=== PATIENT | female | born 1950 | race African-American/Black ===

== ENCOUNTER 2017-05-21 16:07 | Inpatient (IN) | payer OTHER, MEDICAID ==
[~2017-05-21] VITALS: Ht 162.6 cm; Wt 80.2 kg
[2017-05-21] MEDS ORDERED: METF500T4 PO (16:13)
[2017-05-21] MEDS ORDERED: GABA-529 PO (16:13)
[2017-05-21] MEDS ORDERED: LISI-660 PO (16:13)
[2017-05-21] MEDS ORDERED: BUSP5TAB20 PO (16:13)
[2017-05-21 16:22] LABS: GLUCOSE,POINT OF CARE 149 MG/DL (70-110)
[2017-05-21 21:34] LABS: BASOPHILS % (AUTO) 0.7 % (0.0-2.0); EOSINOPHILS % (AUTO) 1.2 % (1.0-6.0); HEMATOCRIT 39.8 % (36-46); HEMOGLOBIN 13.3 g/dL (12.0-16.0); LYMPHOCYTES # (AUTO) 1.4 K/uL (1.0-4.8); LYMPHOCYTES % (AUTO) 16.3 % (22.0-44.0); MEAN CORPUSCULAR HEMOGLOBIN 28.5 pg (26.0-34.0); MEAN CORPUSCULAR HGB CONC 33.4 G/dL (31.0-37.0); MEAN CORPUSCULAR VOLUME 85 fL (80-100); MONOCYTES # (AUTO) 0.7 K/uL (0.1-1.0); MONOCYTES % (AUTO) 7.5 % (2.0-9.0); NEUTROPHILS # (AUTO) 6.5 K/uL (1.8-7.7); NEUTROPHILS % (AUTO) 74.3 % (40.0-70.0); PLATELET COUNT (AUTO) 276 K/uL (150-450); RED BLOOD CELL COUNT(AUTO) 4.66 MIL/uL (4.00-5.20); RED CELL DISTRIBUTION WIDTH 14.8 % (11.5-14.5)
[2017-05-21] MEDS ORDERED: ZOLPIDEM TARTRATE 10 MG TABLET PO PRN (21:45)
[2017-05-21] MEDS ORDERED: OLANZapine 5 MG RAPDIS TABLET PO PRN (21:45)
[2017-05-21 21:53] LABS: ANION GAP 14 mmol/L (8-16); CALCIUM, TOTAL 9.8 mg/dL (8.8-10.5); CARBON DIOXIDE 24 mmol/L (22-29); CHLORIDE 99 mmol/L (98-107); CREATININE 1.02 mg/dL (0.60-1.30); GLOMERULAR FILTR. RATE CALC > 60 mL/min (>60); GLUCOSE,RANDOM 126 mg/dL (70-110); POTASSIUM 3.2 mmol/L (3.5-5.1); SODIUM SERUM 137 mmol/L (136-145); UREA NITROGEN, BLOOD 26 mg/dL (7-18)
[2017-05-21 21:58] LABS: ALANINE AMINOTRANSFERASE 23 U/L (12-78); ALBUMIN 3.7 g/dL (3.4-5.0); ALKALINE PHOSPHATASE 96 U/L (46-116); ASPARTATE AMINOTRANSFERASE 29 U/L (15-37); BILIRUBIN,TOTAL 0.3 mg/dL (0.1-1.0); TOTAL PROTEIN, SERUM 7.3 g/dL (6.4-8.2)
[2017-05-21] MEDS ORDERED: POTASSIUM CHLORIDE 20 MEQ ER TABLET PO ONE (22:30)
[2017-05-22] VITALS (7 sets, daily range): BP systolic 140–190; BP diastolic 60–109
[2017-05-22] MEDS: LORazepam 2 MG TABLET PO PRN (00:23)
[2017-05-22] MEDS ORDERED: INFLUENZA VIRUS VACCINE QVS 2017-18 (3YR+)/PF 60 MCG/0.5 ML SYRINGE IM ONE (00:45)
[2017-05-22] MEDS ORDERED: PNEUMOCOCCAL VACCINE POLYVALENT 0.5 ML VIAL [PPSV23] IM ONE (00:45)
[2017-05-22] MEDS ORDERED: GLUCAGON,HUMAN RECOMBINANT 1 MG VIAL IM PRN (05:45)
[2017-05-22] MEDS ORDERED: INSULIN ASPART 100 UNITS/ML SQ PRN (05:45)
[2017-05-22 06:13] LABS: GLUCOMETER DEV NAME(LOC) BV2S; GLUCOSE,POINT OF CARE 138 MG/DL (70-110)
[2017-05-22] MEDS: MetFORMIN HCL 500 MG TABLET PO SCH ×2 (06:50→16:33)
[2017-05-22] MEDS: FLUoxetine HCL 20 MG CAPSULE PO SCH (08:19)
[2017-05-22] MEDS ORDERED: LISINOPRIL 5 MG TABLET PO SCH (09:00)
[2017-05-22 09:06] LABS: CHOL/HDL RATIO 5.6 (3.9-5.7); FREE T4 (FREE THYROXINE) 1.06 ng/dL (0.76-1.46); POTASSIUM 3.7 mmol/L (3.5-5.1); THYROID STIMULATING HORMONE 1.21 uIU/mL (0.36-3.74)
[2017-05-22 11:12] LABS: GLUCOMETER DEV NAME(LOC) BV2S; GLUCOSE,POINT OF CARE 153 MG/DL (70-110)
[2017-05-22] MEDS: CloNIDine HCL 0.1 MG TABLET PO PRN (12:17)
[2017-05-22 16:23] LABS: GLUCOMETER DEV NAME(LOC) BV2S; GLUCOSE,POINT OF CARE 157 MG/DL (70-110)
[2017-05-22] MEDS ORDERED: ACETAMINOPHEN 325 MG TABLET PO PRN (20:15)
[2017-05-22] MEDS ORDERED: IBUPROFEN 400 MG TABLET PO PRN (20:15)
[2017-05-22 20:32] LABS: GLUCOMETER DEV NAME(LOC) BV2S; GLUCOSE,POINT OF CARE 156 MG/DL (70-110)
[2017-05-22] MEDS ORDERED: OLANZapine 5 MG TABLET PO SCH (21:00)
[2017-05-23 06:28] LABS: GLUCOMETER DEV NAME(LOC) BV2S; GLUCOSE,POINT OF CARE 116 MG/DL (70-110)
[2017-05-23 06:52] VITALS: BP 145/83
[2017-05-23] MEDS: MetFORMIN HCL 500 MG TABLET PO SCH ×2 (07:05→16:37)
[2017-05-23] MEDS: FLUoxetine HCL 20 MG CAPSULE PO SCH (08:22)
[2017-05-23 08:23] VITALS: BP 151/77
[2017-05-23] MEDS: LISINOPRIL 5 MG TABLET PO SCH (08:23)
[2017-05-23 11:12] LABS: GLUCOMETER DEV NAME(LOC) BV2S; GLUCOSE,POINT OF CARE 89 MG/DL (70-110)
[2017-05-23] MEDS ORDERED: AmLODIPine BESYLATE 5 MG TABLET PO ONE (16:15)
[2017-05-23 16:33] VITALS: BP 183/84
[2017-05-23 16:48] LABS: GLUCOMETER DEV NAME(LOC) BV2S; GLUCOSE,POINT OF CARE 126 MG/DL (70-110)
[2017-05-23 19:05] VITALS: BP 182/82
[2017-05-23] MEDS: CloNIDine HCL 0.1 MG TABLET PO PRN (19:09)
[2017-05-23 20:17] LABS: GLUCOMETER DEV NAME(LOC) BV2S; GLUCOSE,POINT OF CARE 166 MG/DL (70-110)
[2017-05-23 20:30] VITALS: BP 147/80
[2017-05-23] MEDS: OLANZapine 7.5 MG TABLET PO SCH (20:30)
[2017-05-24] MEDS: LORazepam 2 MG TABLET PO PRN (00:28)
[2017-05-24 06:27] LABS: GLUCOMETER DEV NAME(LOC) BV2S; GLUCOSE,POINT OF CARE 84 MG/DL (70-110)
[2017-05-24 06:53] VITALS: BP 187/103
[2017-05-24] MEDS: CloNIDine HCL 0.1 MG TABLET PO PRN (06:53)
[2017-05-24] MEDS: MetFORMIN HCL 500 MG TABLET PO SCH ×2 (06:57→17:05)
[2017-05-24 07:50] VITALS: BP 130/61
[2017-05-24 08:06] VITALS: BP 130/61
[2017-05-24] MEDS: CHLORTHALIDONE 25 MG TABLET PO SCH (08:23)
[2017-05-24] MEDS: LISINOPRIL 5 MG TABLET PO SCH (08:23)
[2017-05-24] MEDS: FLUoxetine HCL 20 MG CAPSULE PO SCH (08:23)
[2017-05-24] MEDS: AmLODIPine BESYLATE 5 MG TABLET PO SCH (08:23)
[2017-05-24 11:17] LABS: GLUCOMETER DEV NAME(LOC) BV2S; GLUCOSE,POINT OF CARE 127 MG/DL (70-110)
[2017-05-24 16:01] VITALS: BP 142/79
[2017-05-24 16:52] LABS: GLUCOMETER DEV NAME(LOC) BV2S; GLUCOSE,POINT OF CARE 114 MG/DL (70-110)
[2017-05-24] MEDS: OLANZapine 7.5 MG TABLET PO SCH (20:16)
[2017-05-24 20:52] LABS: GLUCOMETER DEV NAME(LOC) BV2S; GLUCOSE,POINT OF CARE 135 MG/DL (70-110)
[2017-05-25 00:55] VITALS: BP 132/77
[2017-05-25 06:27] LABS: GLUCOMETER DEV NAME(LOC) BV2S; GLUCOSE,POINT OF CARE 98 MG/DL (70-110)
[2017-05-25] MEDS: MetFORMIN HCL 500 MG TABLET PO SCH ×2 (06:43→16:55)
[2017-05-25] MEDS: LISINOPRIL 5 MG TABLET PO SCH (08:18)
[2017-05-25] MEDS: AmLODIPine BESYLATE 5 MG TABLET PO SCH (08:18)
[2017-05-25] MEDS: CHLORTHALIDONE 25 MG TABLET PO SCH (08:19)
[2017-05-25 08:40] VITALS: BP 156/88
[2017-05-25] MEDS ORDERED: FLUoxetine HCL 20 MG CAPSULE PO SCH (09:00)
[2017-05-25 11:02] LABS: GLUCOMETER DEV NAME(LOC) BV2S; GLUCOSE,POINT OF CARE 85 MG/DL (70-110)
[2017-05-25 15:53] VITALS: BP 145/72
[2017-05-25 16:47] LABS: GLUCOMETER DEV NAME(LOC) BV2S; GLUCOSE,POINT OF CARE 100 MG/DL (70-110)
[2017-05-25 18:05] VITALS: BP 138/64
[2017-05-25] MEDS: OLANZapine 7.5 MG TABLET PO SCH (20:14)
[2017-05-25 20:27] LABS: GLUCOMETER DEV NAME(LOC) BV2S; GLUCOSE,POINT OF CARE 123 MG/DL (70-110)
[2017-05-26 06:28] LABS: GLUCOMETER DEV NAME(LOC) BV2S; GLUCOSE,POINT OF CARE 108 MG/DL (70-110)
[2017-05-26 07:02] VITALS: BP 140/82
[2017-05-26] MEDS: MetFORMIN HCL 500 MG TABLET PO SCH ×2 (07:16→16:46)
[2017-05-26 08:01] VITALS: BP 149/72
[2017-05-26] MEDS: LISINOPRIL 5 MG TABLET PO SCH (08:15)
[2017-05-26] MEDS: CHLORTHALIDONE 25 MG TABLET PO SCH (08:15)
[2017-05-26] MEDS: AmLODIPine BESYLATE 5 MG TABLET PO SCH (08:15)
[2017-05-26] MEDS: FLUoxetine HCL 20 MG CAPSULE PO SCH (08:15)
[2017-05-26 11:07] LABS: GLUCOMETER DEV NAME(LOC) BV2S; GLUCOSE,POINT OF CARE 95 MG/DL (70-110)
[2017-05-26 16:00] VITALS: BP 141/74
[2017-05-26 16:52] LABS: GLUCOMETER DEV NAME(LOC) BV2S; GLUCOSE,POINT OF CARE 192 MG/DL (70-110)
[2017-05-26] MEDS: OLANZapine 7.5 MG TABLET PO SCH (20:27)
[2017-05-26 20:33] LABS: GLUCOMETER DEV NAME(LOC) BV2S; GLUCOSE,POINT OF CARE 122 MG/DL (70-110)
[2017-05-27 06:17] LABS: GLUCOMETER DEV NAME(LOC) BV2S; GLUCOSE,POINT OF CARE 104 MG/DL (70-110)
[2017-05-27] MEDS: MetFORMIN HCL 500 MG TABLET PO SCH ×2 (06:32→16:49)
[2017-05-27 08:18] VITALS: BP 134/76
[2017-05-27] MEDS: LISINOPRIL 5 MG TABLET PO SCH (08:46)
[2017-05-27] MEDS: CHLORTHALIDONE 25 MG TABLET PO SCH (08:46)
[2017-05-27] MEDS: FLUoxetine HCL 20 MG CAPSULE PO SCH (08:48)
[2017-05-27] MEDS: AmLODIPine BESYLATE 5 MG TABLET PO SCH (09:02)
[2017-05-27 11:22] LABS: GLUCOMETER DEV NAME(LOC) BV2S; GLUCOSE,POINT OF CARE 112 MG/DL (70-110)
[2017-05-27 17:02] LABS: GLUCOMETER DEV NAME(LOC) BV2S; GLUCOSE,POINT OF CARE 110 MG/DL (70-110)
[2017-05-27] MEDS: OLANZapine 7.5 MG TABLET PO SCH (20:07)
[2017-05-28 00:54] VITALS: BP 107/63
[2017-05-28 06:22] LABS: GLUCOMETER DEV NAME(LOC) BV2S; GLUCOSE,POINT OF CARE 110 MG/DL (70-110)
[2017-05-28] MEDS: MetFORMIN HCL 500 MG TABLET PO SCH ×2 (06:37→16:35)
[2017-05-28] MEDS: AmLODIPine BESYLATE 5 MG TABLET PO SCH (08:28)
[2017-05-28] MEDS: LISINOPRIL 5 MG TABLET PO SCH (08:28)
[2017-05-28] MEDS: FLUoxetine HCL 20 MG CAPSULE PO SCH (08:28)
[2017-05-28 08:29] VITALS: BP 139/79
[2017-05-28] MEDS: CHLORTHALIDONE 25 MG TABLET PO SCH (08:29)
[2017-05-28 16:12] VITALS: BP 119/62
[2017-05-28 16:22] LABS: GLUCOMETER DEV NAME(LOC) BV2S; GLUCOSE,POINT OF CARE 154 MG/DL (70-110)
[2017-05-28] MEDS: OLANZapine 7.5 MG TABLET PO SCH (20:29)
[2017-05-29 00:11] VITALS: BP 108/63
[2017-05-29 06:22] LABS: GLUCOMETER DEV NAME(LOC) BV2S; GLUCOSE,POINT OF CARE 107 MG/DL (70-110)
[2017-05-29] MEDS: MetFORMIN HCL 500 MG TABLET PO SCH ×2 (06:50→16:35)
[2017-05-29] MEDS: LISINOPRIL 5 MG TABLET PO SCH (08:16)
[2017-05-29] MEDS: FLUoxetine HCL 20 MG CAPSULE PO SCH (08:16)
[2017-05-29] MEDS: CHLORTHALIDONE 25 MG TABLET PO SCH (08:17)
[2017-05-29] MEDS: AmLODIPine BESYLATE 5 MG TABLET PO SCH (08:17)
[2017-05-29 08:24] VITALS: BP 133/74
[2017-05-29] MEDS ORDERED: LITHIUM CARBONATE 300 MG CAPSULE PO SCH (13:00)
[2017-05-29 16:16] VITALS: BP 129/75
[2017-05-29 16:28] LABS: GLUCOMETER DEV NAME(LOC) BV2S; GLUCOSE,POINT OF CARE 189 MG/DL (70-110)
[2017-05-29] MEDS: BusPIRone HCL 5 MG TABLET PO SCH (16:35)
[2017-05-29] MEDS: OLANZapine 7.5 MG TABLET PO SCH (20:40)
[2017-05-30 06:28] LABS: GLUCOMETER DEV NAME(LOC) BV2S; GLUCOSE,POINT OF CARE 116 MG/DL (70-110)
[2017-05-30] MEDS: MetFORMIN HCL 500 MG TABLET PO SCH ×2 (06:40→16:44)
[2017-05-30 06:44] VITALS: BP 112/63
[2017-05-30 08:20] VITALS: BP 118/69
[2017-05-30] MEDS: CHLORTHALIDONE 25 MG TABLET PO SCH (08:23)
[2017-05-30] MEDS: FLUoxetine HCL 20 MG CAPSULE PO SCH (08:24)
[2017-05-30] MEDS: LISINOPRIL 5 MG TABLET PO SCH (08:24)
[2017-05-30] MEDS: BusPIRone HCL 5 MG TABLET PO SCH ×2 (08:24→12:26)
[2017-05-30] MEDS: AmLODIPine BESYLATE 5 MG TABLET PO SCH (08:24)
[2017-05-30] MEDS ORDERED: FLUO-191 PO (13:33)
[2017-05-30] MEDS ORDERED: OLAN7.5T9 PO (13:33)
[2017-05-30] MEDS ORDERED: BUSP10TA23 PO (13:33)
[2017-05-30 16:34] VITALS: BP 115/61
[2017-05-30] MEDS: BusPIRone HCL 10 MG TABLET PO SCH (16:44)
[2017-05-30 16:58] LABS: GLUCOMETER DEV NAME(LOC) BV2S; GLUCOSE,POINT OF CARE 150 MG/DL (70-110)
[2017-05-30] MEDS: OLANZapine 7.5 MG TABLET PO SCH (20:10)
[2017-05-31 06:01] VITALS: BP 130/70
[2017-05-31 06:18] LABS: GLUCOMETER DEV NAME(LOC) BV2S; GLUCOSE,POINT OF CARE 92 MG/DL (70-110)
[2017-05-31] MEDS: MetFORMIN HCL 500 MG TABLET PO SCH ×2 (06:36→16:28)
[2017-05-31] MEDS ORDERED: CHL25 PO (08:01)
[2017-05-31] MEDS ORDERED: AMLO-511 PO (08:01)
[2017-05-31] MEDS: FLUoxetine HCL 20 MG CAPSULE PO SCH (08:22)
[2017-05-31] MEDS: LISINOPRIL 5 MG TABLET PO SCH (08:22)
[2017-05-31] MEDS: BusPIRone HCL 10 MG TABLET PO SCH ×2 (08:22→16:29)
[2017-05-31] MEDS: CHLORTHALIDONE 25 MG TABLET PO SCH (08:22)
[2017-05-31] MEDS: AmLODIPine BESYLATE 5 MG TABLET PO SCH (08:22)
[2017-05-31 08:32] VITALS: BP 127/71
[2017-05-31 16:05] VITALS: BP 111/69
[2017-05-31] MEDS: OLANZapine 7.5 MG TABLET PO SCH (20:21)
[2017-06-01 05:37] VITALS: BP 117/69
[2017-06-01 06:28] LABS: GLUCOMETER DEV NAME(LOC) BV2S; GLUCOSE,POINT OF CARE 107 MG/DL (70-110)
[2017-06-01] MEDS: MetFORMIN HCL 500 MG TABLET PO SCH ×2 (06:46→16:51)
[2017-06-01] MEDS: BusPIRone HCL 10 MG TABLET PO SCH ×2 (08:15→16:51)
[2017-06-01] MEDS: FLUoxetine HCL 20 MG CAPSULE PO SCH (08:15)
[2017-06-01] MEDS: AmLODIPine BESYLATE 5 MG TABLET PO SCH (08:15)
[2017-06-01] MEDS: CHLORTHALIDONE 25 MG TABLET PO SCH (08:15)
[2017-06-01] MEDS: LISINOPRIL 5 MG TABLET PO SCH (08:15)
[2017-06-01 08:34] VITALS: BP 138/72
[2017-06-01 16:01] VITALS: BP 110/71
[2017-06-01 16:58] LABS: GLUCOMETER DEV NAME(LOC) BV2S; GLUCOSE,POINT OF CARE 109 MG/DL (70-110)
[2017-06-01] MEDS: OLANZapine 7.5 MG TABLET PO SCH (20:14)
[2017-06-02 00:55] VITALS: BP 118/69
[2017-06-02 06:57] LABS: GLUCOMETER DEV NAME(LOC) BV2S; GLUCOSE,POINT OF CARE 117 MG/DL (70-110)
[2017-06-02] MEDS: MetFORMIN HCL 500 MG TABLET PO SCH ×2 (07:00→16:48)
[2017-06-02 08:09] VITALS: BP 126/70
[2017-06-02] MEDS: CHLORTHALIDONE 25 MG TABLET PO SCH (08:15)
[2017-06-02] MEDS: FLUoxetine HCL 20 MG CAPSULE PO SCH (08:15)
[2017-06-02] MEDS: AmLODIPine BESYLATE 5 MG TABLET PO SCH (08:16)
[2017-06-02] MEDS: LISINOPRIL 5 MG TABLET PO SCH (08:16)
[2017-06-02] MEDS: BusPIRone HCL 10 MG TABLET PO SCH ×2 (08:17→16:48)
[2017-06-02 16:01] VITALS: BP 138/63
[2017-06-02 16:53] LABS: GLUCOMETER DEV NAME(LOC) BV2S; GLUCOSE,POINT OF CARE 161 MG/DL (70-110)
[2017-06-02] MEDS: OLANZapine 7.5 MG TABLET PO SCH (20:10)
[2017-06-03 06:07] LABS: GLUCOMETER DEV NAME(LOC) BV2S; GLUCOSE,POINT OF CARE 101 MG/DL (70-110)
[2017-06-03 06:11] VITALS: BP 137/67
[2017-06-03] MEDS: MetFORMIN HCL 500 MG TABLET PO SCH ×2 (07:10→16:59)
[2017-06-03] MEDS: LISINOPRIL 5 MG TABLET PO SCH (08:12)
[2017-06-03] MEDS: BusPIRone HCL 10 MG TABLET PO SCH ×2 (08:12→16:59)
[2017-06-03] MEDS: CHLORTHALIDONE 25 MG TABLET PO SCH (08:13)
[2017-06-03] MEDS: FLUoxetine HCL 20 MG CAPSULE PO SCH (08:13)
[2017-06-03] MEDS: AmLODIPine BESYLATE 5 MG TABLET PO SCH (08:13)
[2017-06-03 08:33] VITALS: BP 125/67
[2017-06-03 16:08] VITALS: BP 122/65
[2017-06-03 16:57] LABS: GLUCOMETER DEV NAME(LOC) BV2S; GLUCOSE,POINT OF CARE 100 MG/DL (70-110)
[2017-06-03] MEDS: OLANZapine 7.5 MG TABLET PO SCH (20:14)
[2017-06-04 06:00] VITALS: BP 130/75
[2017-06-04 06:12] LABS: GLUCOMETER DEV NAME(LOC) BV2S; GLUCOSE,POINT OF CARE 111 MG/DL (70-110)
[2017-06-04] MEDS: MetFORMIN HCL 500 MG TABLET PO SCH ×2 (06:44→16:31)
[2017-06-04] MEDS: CHLORTHALIDONE 25 MG TABLET PO SCH (08:31)
[2017-06-04] MEDS: BusPIRone HCL 10 MG TABLET PO SCH ×2 (08:31→16:32)
[2017-06-04] MEDS: LISINOPRIL 5 MG TABLET PO SCH (08:31)
[2017-06-04] MEDS: AmLODIPine BESYLATE 5 MG TABLET PO SCH (08:31)
[2017-06-04] MEDS: FLUoxetine HCL 20 MG CAPSULE PO SCH (08:32)
[2017-06-04 08:33] VITALS: BP 132/64
[2017-06-04 16:12] VITALS: BP 110/60
[2017-06-04 16:13] LABS: GLUCOMETER DEV NAME(LOC) BV2S; GLUCOSE,POINT OF CARE 169 MG/DL (70-110)
[2017-06-04] MEDS: OLANZapine 7.5 MG TABLET PO SCH (20:36)
[2017-06-05 06:25] VITALS: BP 108/68
[2017-06-05] MEDS: MetFORMIN HCL 500 MG TABLET PO SCH ×2 (06:36→16:34)
[2017-06-05 06:38] LABS: GLUCOMETER DEV NAME(LOC) BV2S; GLUCOSE,POINT OF CARE 108 MG/DL (70-110)
[2017-06-05 08:08] VITALS: BP 126/72
[2017-06-05] MEDS: CHLORTHALIDONE 25 MG TABLET PO SCH (08:12)
[2017-06-05] MEDS: AmLODIPine BESYLATE 5 MG TABLET PO SCH (08:13)
[2017-06-05] MEDS: FLUoxetine HCL 20 MG CAPSULE PO SCH (08:13)
[2017-06-05] MEDS: BusPIRone HCL 10 MG TABLET PO SCH ×2 (08:13→16:34)
[2017-06-05] MEDS: LISINOPRIL 5 MG TABLET PO SCH (08:13)
[2017-06-05 16:17] VITALS: BP 117/66
[2017-06-05 16:27] LABS: GLUCOMETER DEV NAME(LOC) BV2S; GLUCOSE,POINT OF CARE 161 MG/DL (70-110)
[2017-06-05] MEDS: OLANZapine 7.5 MG TABLET PO SCH (20:22)
[2017-06-06 00:42] VITALS: BP 131/64
[2017-06-06] MEDS: MetFORMIN HCL 500 MG TABLET PO SCH ×2 (06:39→16:30)
[2017-06-06 08:40] VITALS: BP 113/57
[2017-06-06] MEDS: BusPIRone HCL 10 MG TABLET PO SCH ×2 (09:08→16:30)
[2017-06-06] MEDS: FLUoxetine HCL 20 MG CAPSULE PO SCH (09:08)
[2017-06-06 09:10] VITALS: BP 112/65
[2017-06-06] MEDS: AmLODIPine BESYLATE 5 MG TABLET PO SCH (09:10)
[2017-06-06] MEDS: CHLORTHALIDONE 25 MG TABLET PO SCH (09:10)
[2017-06-06] MEDS: LISINOPRIL 5 MG TABLET PO SCH (09:11)
[2017-06-06 16:01] VITALS: BP 124/61
[2017-06-06 17:17] LABS: GLUCOMETER DEV NAME(LOC) BV2S; GLUCOSE,POINT OF CARE 156 MG/DL (70-110)
[2017-06-06] MEDS: OLANZapine 7.5 MG TABLET PO SCH (20:10)
[2017-06-07 06:18] LABS: GLUCOMETER DEV NAME(LOC) BV2S; GLUCOSE,POINT OF CARE 142 MG/DL (70-110)
[2017-06-07 06:34] VITALS: BP 124/77
[2017-06-07] MEDS: MetFORMIN HCL 500 MG TABLET PO SCH ×2 (06:57→16:36)
[2017-06-07 08:23] VITALS: BP 108/62
[2017-06-07] MEDS: LISINOPRIL 5 MG TABLET PO SCH (08:55)
[2017-06-07] MEDS: BusPIRone HCL 10 MG TABLET PO SCH ×2 (08:55→16:35)
[2017-06-07] MEDS: FLUoxetine HCL 20 MG CAPSULE PO SCH (08:55)
[2017-06-07] MEDS: AmLODIPine BESYLATE 5 MG TABLET PO SCH (08:55)
[2017-06-07 08:56] VITALS: BP 120/68
[2017-06-07] MEDS: CHLORTHALIDONE 25 MG TABLET PO SCH (08:56)
[2017-06-07 16:47] LABS: GLUCOMETER DEV NAME(LOC) BV2S; GLUCOSE,POINT OF CARE 97 MG/DL (70-110)
[2017-06-07 17:05] VITALS: BP 138/77
[2017-06-07] MEDS: OLANZapine 7.5 MG TABLET PO SCH (21:02)
[2017-06-07 21:28] LABS: GLUCOMETER DEV NAME(LOC) BV2S; GLUCOSE,POINT OF CARE 135 MG/DL (70-110)
[2017-06-08] MEDS: MetFORMIN HCL 500 MG TABLET PO SCH ×2 (06:17→16:56)
[2017-06-08 06:29] VITALS: BP 110/65
[2017-06-08 06:58] LABS: GLUCOMETER DEV NAME(LOC) BV2S; GLUCOSE,POINT OF CARE 102 MG/DL (70-110)
[2017-06-08 08:29] VITALS: BP 140/72
[2017-06-08] MEDS: FLUoxetine HCL 20 MG CAPSULE PO SCH (08:59)
[2017-06-08] MEDS: CHLORTHALIDONE 25 MG TABLET PO SCH (08:59)
[2017-06-08] MEDS: LISINOPRIL 5 MG TABLET PO SCH (08:59)
[2017-06-08] MEDS: AmLODIPine BESYLATE 5 MG TABLET PO SCH (08:59)
[2017-06-08] MEDS: BusPIRone HCL 10 MG TABLET PO SCH ×2 (08:59→16:56)
[2017-06-08 16:15] VITALS: BP 112/61
[2017-06-08 17:03] LABS: GLUCOMETER DEV NAME(LOC) BV2S; GLUCOSE,POINT OF CARE 136 MG/DL (70-110)
[2017-06-08] MEDS: OLANZapine 7.5 MG TABLET PO SCH (20:14)
[2017-06-09 06:23] VITALS: BP 123/65
[2017-06-09] MEDS: MetFORMIN HCL 500 MG TABLET PO SCH ×2 (06:28→17:11)
[2017-06-09 06:33] LABS: GLUCOMETER DEV NAME(LOC) BV2S; GLUCOSE,POINT OF CARE 110 MG/DL (70-110)
[2017-06-09 08:31] VITALS: BP 101/62
[2017-06-09] MEDS: BusPIRone HCL 10 MG TABLET PO SCH ×2 (09:04→17:11)
[2017-06-09] MEDS: FLUoxetine HCL 20 MG CAPSULE PO SCH (09:04)
[2017-06-09 09:05] VITALS: BP 113/64
[2017-06-09] MEDS: CHLORTHALIDONE 25 MG TABLET PO SCH (09:05)
[2017-06-09] MEDS: LISINOPRIL 5 MG TABLET PO SCH (09:05)
[2017-06-09] MEDS: AmLODIPine BESYLATE 5 MG TABLET PO SCH (09:05)
[2017-06-09 16:30] VITALS: BP 100/72
[2017-06-09 17:03] LABS: GLUCOMETER DEV NAME(LOC) BV2S; GLUCOSE,POINT OF CARE 137 MG/DL (70-110)
[2017-06-09] MEDS: OLANZapine 7.5 MG TABLET PO SCH (20:36)
[2017-06-10 00:02] VITALS: BP 117/65
[2017-06-10 06:13] LABS: GLUCOMETER DEV NAME(LOC) BV2S; GLUCOSE,POINT OF CARE 92 MG/DL (70-110)
[2017-06-10] MEDS: MetFORMIN HCL 500 MG TABLET PO SCH ×2 (06:41→16:41)
[2017-06-10 08:21] VITALS: BP 119/65
[2017-06-10] MEDS: CHLORTHALIDONE 25 MG TABLET PO SCH (08:55)
[2017-06-10] MEDS: AmLODIPine BESYLATE 5 MG TABLET PO SCH (08:55)
[2017-06-10] MEDS: BusPIRone HCL 10 MG TABLET PO SCH ×2 (08:55→16:41)
[2017-06-10] MEDS: LISINOPRIL 5 MG TABLET PO SCH (08:55)
[2017-06-10] MEDS: FLUoxetine HCL 20 MG CAPSULE PO SCH (08:56)
[2017-06-10 16:28] VITALS: BP 121/67
[2017-06-10 17:02] LABS: GLUCOMETER DEV NAME(LOC) BV2S; GLUCOSE,POINT OF CARE 138 MG/DL (70-110)
[2017-06-10] MEDS: OLANZapine 7.5 MG TABLET PO SCH (20:34)
[2017-06-11 05:44] VITALS: BP 119/75
[2017-06-11 06:03] LABS: GLUCOMETER DEV NAME(LOC) BV2S; GLUCOSE,POINT OF CARE 102 MG/DL (70-110)
[2017-06-11] MEDS: MetFORMIN HCL 500 MG TABLET PO SCH (07:09)
[2017-06-11 08:23] VITALS: BP 124/72
[2017-06-11] MEDS: LISINOPRIL 5 MG TABLET PO SCH (08:51)
[2017-06-11] MEDS: FLUoxetine HCL 20 MG CAPSULE PO SCH (08:51)
[2017-06-11] MEDS: CHLORTHALIDONE 25 MG TABLET PO SCH (08:51)
[2017-06-11] MEDS: BusPIRone HCL 10 MG TABLET PO SCH (08:51)
[2017-06-11] MEDS: AmLODIPine BESYLATE 5 MG TABLET PO SCH (08:51)
== END 2017-06-11 13:30 | disposition home or self-care (01) | DRG 885 ==
LOC: EMS 16:10 → B2X 22:38
PROVIDERS: ADMIT Psychiatry & Neurology Psychiatry; ATTEND Psychiatry & Neurology Psychiatry
DX: F25.0 Schizoaffective disorder, bipolar type (principal); R45.851 Suicidal ideations; E11.9 Type 2 diabetes mellitus without complications; F25.9 Schizoaffective disorder, unspecified; E78.5 Hyperlipidemia, unspecified; Z28.21 Immunization not carried out because of patient refusal; E87.6 Hypokalemia; F32.9 Major depressive disorder, single episode, unspecified; F41.9 Anxiety disorder, unspecified; I10 Essential (primary) hypertension; Z79.899 Other long term (current) drug therapy; Z90.710 Acquired absence of both cervix and uterus; Z91.19 Patient's noncompliance with other medical treatment and regimen
CPT/HCPCS: 82962; 84132; 84439; 84443; 87081; 90471; 99285; G0480